=== PATIENT | male | born 1990 | race Caucasian/White ===

== ENCOUNTER 2024-03-03 22:41 | Emergency (ER) | payer SELFPAY ==
[2024-03-03 22:46] VITALS: BP 134/74; PULSE 82; TEMP 36.8; O2SAT 99; BMI 28.2
--- NOTE | 2024-03-03 22:50 | ECG_ITS ---
The [facility] Test Date: 2024-03-03 Pat Name: RAMSES GRAYSON Department: Room: - Gender: Male Learning Design Specialist: : 1990 Requested By: [id number] Order Number: [id number] Reading MD: ASHLIE IVEY Measurements Intervals [place] Rate: 78 P: 36 CO: 146 QRS: 10 QRSD: 90 T: 53 QT: 368 QTc: 401 Interpretive Statements 1100 Sinus rhythm 9110 normal ECG No previous ECG available for comparison Electronically Signed On 03-04-2024 6:57:56 EDT by ASHLIE IVEY
--- NOTE | 2024-03-03 22:54 | ED_ITS ---
HPI - Chest Pain General Chief Complaint: Chest Pain Stated Complaint: Chest Pain, Left Arm Numbness Time Seen by Provider: 03/03/24 22:49 Source: patient Mode of arrival: walk-in History of Present Illness HPI narrative: ongoing left chest pain for past month. States seen twice at another hospital and no findings. This week recurrent episodes of tingling left arm. No weakness of the extremities. no nausea or dyspnea or abdominal pain. Related Data Home Medications ?Medication ?Instructions ?Recorded ?Confirmed No Known Home Medications 03/03/24 03/03/24 Allergies Allergy/AdvReac Type Severity Reaction Status Date / Time No Known Drug Allergies Allergy Verified 03/03/24 22:46 Review of Systems ROS Status of ROS 10 or more systems reviewed and unremark able except as noted in history and below Exam Constitutional Vital Signs, click to edit/add: Last Vital Signs Temp 98.2 F 03/03/24 22:46 Pulse 82 03/03/24 22:46 Resp 15 03/03/24 22:46 BP 134/74 03/03/24 22:46 Pulse Ox 99 03/03/24 22:46 O2 Del Method Room Air 03/03/24 22:46 Common normals: no apparent distress, average body habitus, oriented x3, no limitations, healthy appearing, alert and well nourished [facility] Common normals: normocephalic and head/scalp atraumatic Eye Common normals: EOMs intact bilaterally and conjunctivae normal Respiratory Common normals: normal respiratory effort, no retractions, no use of accessory muscles and clear to auscultation bilaterally Cardio Common normals: regular rate, regular rhythm, S1 normal heart sound and S2 normal heart sound GI Common normals: Normal to inspection, nondistended, normoactive bowel sounds present, soft to palpation and non-tender Extremity Common normals: normal to inspection and full ROM Neuro Common normals: oriented x3, CN's II-XII intact bilaterally, moves all extremities and no focal motor deficits Psych Appearance: grossly normal Course Vital Signs Vital signs: Vital Signs Temperature 98.2 F 03/03/24 22:46 Pulse Rate 82 03/03/24 22:46 Respiratory Rate 15 03/03/24 22:46 Blood Pressure 134/74 03/03/24 22:46 Pulse Oximetry 99 03/03/24 22:46 Oxygen Delivery Method Room Air 03/03/24 22:46 Temperature 98.2 F 03/03/24 22:46 Pulse Rate 82 03/03/24 22:46 Respiratory Rate 15 03/03/24 22:46 Blood Pressure 134/74 03/03/24 22:46 Pulse Oximetry 99 03/03/24 22:46 Oxygen Delivery Method Room Air 03/03/24 22:46 MDM - Chest Pain MDM Narrative Medical decision making narrative: patient presents with continued chest pain for past month. Seen x 2 at another hospital for this complaint with no findings per patient. Now presents with continued chest discomfort but came in because of tinging of her left arm on and off. No weakness. No other numbness or tingling. Exam neg. Workup in the department neg as well. Patient informed of the working diagnosis Lab Data Labs: Lab Results 03/03/24 Range/Units 22:55 WBC 10.0 (4.0-11.0) 10^3/uL RBC 4.73 (4.70-6.10) 10^6/uL Hgb 14.0 (14.0-18.0) g/dL Hct 41.8 L (42.0-54.0) % MCV 88.4 (80.0-94.0) fL MCH 29.6 (25.9-34.0) pg MCHC 33.5 (29.9-35.2) g/dL RDW 12.8 (11.0-15.0) % Plt Count 232 (150-450) 10^3/uL MPV 10.2 (9.5-13.5) fL Neut % (Auto) 60.4 (43.0-75.0) % Lymph % (Auto) 30.6 (20.5-60.0) % [place] % (Auto) 7.8 (1.7-12.0) % Eos % (Auto) 0.8 L (0.9-7.0) % Baso % (Auto) 0.2 (0.2-2.0) % Neut # (Auto) 6.0 (1.4-6.5) 10^3/uL Lymph # (Auto) 3.1 (1.2-3.8) 10^3/uL [place] # (Auto) 0.8 (0.3-0.8) 10^3/uL Eos # (Auto) 0.1 (0.0-0.7) 10^3/uL Baso # (Auto) 0.0 (0.0-0.1) 10^3/uL Abs Immat Gran (auto) 0.02 (0.00-0.03) 10^3/uL Imm/Tot Granulo (auto) 0.2 (0.0-0.5) % D-Dimer 0.36 (<=0.59) mg/L FEU Sodium 140 (136-145) mmol/L Potassium 3.3 L (3.5-5.1) mmol/L Chloride 102 (98-107) mmol/L Carbon Dioxide 28.1 (21.0-32.0) mmol/L Anion Gap 13.2 BUN 5.0 L (7.0-18.0) mg/dL Creatinine 0.79 (0.70-1.30) mg/dL Est GFR ( Amer) >60 (>=60) Est GFR (Non-Af Amer) >60 (>=60) BUN/Creatinine Ratio 6.3 Glucose 87 (74-106) mg/dL Calcium 9.1 (8.5-10.1) mg/dL Troponin I High Sens <4.0 L (4.0-76.1) pg/mL Discharge Plan Discharge Stand Alone Forms: Work/School Release, Portal Instructions Chief Complaint: Chest Pain Clinical Impression: Cervical neuralgia Patient Disposition: Home, Self-Care Prescriptions / Home Meds: No Action No Known Home Medications Print Language: Uzbek Instructions: Cervical Radiculopathy (ED) Additional Instructions: follow up with family doctor later this week Referrals: Physician,Non-Staff, MD [Primary Care Provider] - 1 week Discharge Date/Time: 03/04/24 00:43
--- NOTE | 2024-03-03 22:56 | XR_ITS ---
The [address] [address] Patient Name: RAMSES GRAYSON MRN: [id number] date: 1990 Sex: M Assigned Patient Location: ER Current Patient Location: ER Accession/Order Number: [id number] Exam Date: 03/03/2024 23:15 Report Date: 03/04/2024 00:20 At the request of: [facility] TINAJERO Procedure: XR chest 1V EXAM: XR chest 1V HISTORY: chest pain COMPARISON: None. TECHNIQUE: One view of the chest was obtained. FINDINGS: The cardiac silhouette is normal in size. The lungs are clear. There is no significant pneumothorax or pleural effusion. No acute osseous abnormality is seen. XR/XR chest 1V IMPRESSION: 1. No acute cardiopulmonary abnormality. Electronically authenticated by: Belem MACEDO Date: 03/04/2024 00:20
[2024-03-03 23:03] LABS: Basophils Percent Auto 0.2 % (0.2-2.0); Eosinophils Absolute Auto 0.1 10^3/uL (0.0-0.7); Eosinophils Percent Auto 0.8 % (0.9-7.0); Hematocrit 41.8 % (42.0-54.0); Immature Granulocytes Abs Auto 0.02 10^3/uL (0.00-0.03); Immature Granulocytes Pct Auto 0.2 % (0.0-0.5); Lymphocytes Absolute Auto 3.1 10^3/uL (1.2-3.8); Lymphocytes Percent Auto 30.6 % (20.5-60.0); Mean Corpuscular HGB Conc 33.5 g/dL (29.9-35.2); Mean Corpuscular Hemoglobin 29.6 pg (25.9-34.0); Mean Corpuscular Volume 88.4 fL (80.0-94.0); Mean Platelet Volume 10.2 fL (9.5-13.5); Monocytes Absolute Auto 0.8 10^3/uL (0.3-0.8); Monocytes Percent Auto 7.8 % (1.7-12.0); Neutrophils Percent Auto 60.4 % (43.0-75.0); Platelet Count 232 10^3/uL (150-450); Red Blood Count 4.73 10^6/uL (4.70-6.10); Red Cell Distribution Width 12.8 % (11.0-15.0)
[2024-03-03 23:17] LABS: D Dimer 0.36 mg/L FEU (<=0.59)
[2024-03-03 23:21] LABS: Anion Gap 13.2; BUN Creatinine Ratio 6.3; Calcium 9.1 mg/dL (8.5-10.1); Carbon Dioxide 28.1 mmol/L (21.0-32.0); Chloride 102 mmol/L (98-107); Estimated GFR (African America >60 (>=60); Estimated GFR (Non-African Ame >60 (>=60); Glucose 87 mg/dL (74-106); Potassium 3.3 mmol/L (3.5-5.1); Sodium 140 mmol/L (136-145); Troponin I High Sensitivity <4.0 pg/mL (4.0-76.1)
== END 2024-03-04 00:43 | disposition home or self-care (01) ==
PROVIDERS: Emergency Provider Internal Medicine
DX: G58.8 Other specified mononeuropathies (principal)
CPT/HCPCS: 36415; 71045; 80048; 84484; 85025; 85378; 93005; 99285